=== PATIENT | male | born 1970 | race Caucasian/White ===

== ENCOUNTER 2021-06-18 13:53 | Emergency (ER) | payer BC ==
[2021-06-18] MEDS ORDERED: VISTARIL25 MG PO (16:28)
[2021-06-18] MEDS ORDERED: VIBRAMYCIN 100100 MG PO (16:28)
[2021-06-18] MEDS ORDERED: MEDROL DOSEPAK 24 MG PO (16:28)
== END 2021-06-18 16:41 | disposition home or self-care (01) ==
LOC: ER1 13:53
DX: S80.862A Insect bite (nonvenomous), left lower leg, initial encounter (principal); S80.861A Insect bite (nonvenomous), right lower leg, initial encounter; L03.116 Cellulitis of left lower limb; L03.115 Cellulitis of right lower limb; L25.8 Unspecified contact dermatitis due to other agents; I10 Essential (primary) hypertension; F17.200 Nicotine dependence, unspecified, uncomplicated; W57.XXXA Bitten or stung by nonvenomous insect and other nonvenomous arthropods, initial encounter
CPT/HCPCS: 96372; 99281; J1100